=== PATIENT | female | born 1985 | race African-American/Black ===

== ENCOUNTER 2016-07-30 12:22 | Emergency (ER) | payer MEDICAID ==
[~2016-07-30] VITALS: Ht 162.6 cm; Wt 57.8 kg
[~2016-07-30 12:22] MED LIST: ZOFR4TAB3 SL
[2016-07-30 12:24] VITALS: BP 123/87; PULSE 114; RESP 16; TEMP 98.9; O2SAT 100
[2016-07-30] MEDS ORDERED: TRAM50TA PO (13:43)
--- NOTE | 2016-07-30 13:43 | PD ---
HPI Chief Complaint: Oral / Dental Pain or Problem Time Seen by Provider: 13:29 Travel History International Travel<30 days: No Contact w/Intl Traveler<30days: No Traveled to known affect area: No History of Present Illness HPI 30-year-old female presents to the emergency room for evaluation of right-sided dental pain for the past 3 days. Patient went to a dentist 2 weeks ago and was given a prescription for amoxicillin. She states she finished the prescription for days ago. She knows that she needs to have the tooth pulled but no dentists will accept pain and plans. She is called 25 dentists in the past 2 days without any lack. Patient has been taking ibuprofen and Orajel but states nothing really seems to help. She states pain radiates to her jaw, shoulder, and ear. Worse with any movement of the mouth, eating, and drinking. She has been lying and ice without any relief in symptoms. PFSH Past Medical History Diminished Hearing: No Genitourinary: Yes (UTI'S) ?: Not : 2 Para: 2 Tubal Ligation: Yes Past Surgical History Section: Yes (X 2) Genitourinary Surgery: Yes (REPAIR OF KIDNEY REFLUX CHILD) Gynecologic Surgery: Yes (TUBAL CLAMPS) Social History Alcohol Use: Yes (OCC) Tobacco Use: Yes (OCC) Substance Use: Yes (marijuana) Allergies-Medications (Allergen,Severity, Reaction): Coded Allergies: No Known Allergies (Unverified , 07/30/16) Reported Meds & Prescriptions Reported Meds & Active Scripts Active Tramadol (Tramadol HCl) 50 Mg Tab 50 Mg PO Q8H PRN Review of Systems Except as stated in HPI: all other systems reviewed are Neg Physical Exam Narrative GENERAL: Well-nourished, well-developed female in no acute distress. Afebrile. Ambulatory. SKIN: Focused skin assessment warm/dry. HEAD: Normocephalic. EYES: No scleral icterus. No injection or drainage. DENTAL: Mild decay throughout. No malocclusion. Tooth #30 has a large cavity in the center. There is no surrounding erythema or edema. No appreciable abscess. NECK: Supple, trachea midline. No JVD or lymphadenopathy. CARDIOVASCULAR: Regular rate and rhythm without murmurs, gallops, or rubs. RESPIRATORY: Breath sounds equal bilaterally. No accessory muscle use. Data Data Last Documented VS Vital Signs Date Time Temp Pulse Resp B/P Pulse Ox O2 Delivery O2 Flow Rate FiO2 07/30/16 12:24 98.9 114 16 123/87 100 MDM Medical Decision Making Medical Screen Exam Complete: Yes Emergency Medical Condition: Yes Medical Record Reviewed: Yes Differential Diagnosis Abscess versus dentalgia versus gingivitis Narrative Course 29-year-old female presents to the emergency room for evaluation of right lower dental pain for the past 3 days. Patient was seen at a dentist 2 weeks ago and prescribed amoxicillin but states her symptoms did not start until 1 day after amoxicillin finished. Physical exam reveals no obvious abscess, drainage, redness, or edema. It is extremely tender to palpation. Tooth #30 has a large cavity with exposed root which is likely the cause of patient's pain. Vital signs stable. No evidence of systemic infection or Ramu's angina. No indication for more antibiotics at this time. Patient was given a list of dentists in the area and told to follow up for extraction return for worsening symptoms. She understands and agrees to plan. Diagnosis Primary Impression: Dental caries Referrals: Dentist Patient Instructions: Dental Caries (ED), General Instructions Additional Instructions: Rest and drink plenty of fluids. [place] your teeth twice daily. Take tramadol as directed, as needed for pain. Do not drink alcohol or drive on taking this medication. Follow-up with a dentist. Return to the emergency room for worsening symptoms. Med/Other Pt SpecificInfo: Prescription(s) given Scripts Tramadol 50 Mg Tab50 Mg PO Q8H PRN (PAIN) #12 TAB Ref 0 Prov:Mina Claudio MD 07/30/16 Disposition: 01 DISCHARGE HOME Condition: Stable Aline Guaman July 30, 2016 13:42
== END 2016-07-30 13:48 | disposition home or self-care (01) ==
LOC: PHEFT 12:22
DX: K02.9 Dental caries, unspecified (principal); Z72.0 Tobacco use
CPT/HCPCS: 99282

== ENCOUNTER 2017-04-11 12:37 | Emergency (ER) | payer MEDICAID | END 2017-04-11 15:29 | disposition home or self-care (01) | LOC: NEPD 12:37 | DX: S89.91XA Unspecified injury of right lower leg, initial encounter (principal); Z72.0 Tobacco use; W10.9XXA Fall (on) (from) unspecified stairs and steps, initial encounter | CPT/HCPCS: 72170; 73564; 99284 ==

== ENCOUNTER 2017-07-22 09:31 | Emergency (ER) | payer MEDICAID ==
[2017-07-22 09:34] VITALS: BP 140/79; PULSE 115; RESP 20; TEMP 97.8; O2SAT 100
[2017-07-22] MEDS ORDERED: SODIUM CHLOR 0.9% 1000 ML INJ 1,000 ML IV SCH (09:59)
[2017-07-22] MEDS ORDERED: KETOROLAC TROMETHAMINE 30 MG/ML (IVP) VIAL IVP ONE (10:00)
[2017-07-22] MEDS ORDERED: MORPHINE SULFATE 4 MG/ML INJ IV PUSH ONE (10:00)
[2017-07-22] MEDS ORDERED: ONDANSETRON HCL 4 MG/2 ML VIAL IVP ONE (10:00)
[2017-07-22] MEDS ORDERED: ORPHENADRINE INJ 60 MG/2 ML AMP IM ONE (10:00)
[2017-07-22] MEDS ORDERED: DEXAMETHASONE SOD PHOS 20 MG/5 ML VIAL IV PUSH ONE (10:00)
[2017-07-22] MEDS ORDERED: SODIUM CHLORIDE 0.9% FLUSH 10 ML FLUSH IV FLUSH PRN (10:00)
[2017-07-22 10:37] LABS: AUTOMATED NEUTROPHIL # 3.5 TH/MM3 (1.8-7.7); BASOPHIL # 0.1 TH/MM3 (0-0.2); BASOPHIL % 1.2 % (0.0-2.0); EOSINOPHIL % 0.4 % (0.0-4.0); HEMATOCRIT 35.3 % (35.0-46.0); HEMOGLOBIN 11.8 GM/DL (11.6-15.3); LYMPH % 21.3 % (9.0-44.0); LYMPHOCYTE # 1.2 TH/MM3 (1.0-4.8); MEAN CELL VOLUME 80.4 FL (80.0-100.0); MEAN CORPUSCULAR HEMOGLOBIN 26.8 PG (27.0-34.0); MEAN CORPUSCULAR HGB CONC 33.4 % (32.0-36.0); MEAN PLATELET VOLUME 8.7 FL (7.0-11.0); MONO % 14.2 % (0.0-8.0); MONOCYTE # 0.8 TH/MM3 (0-0.9); NEUT % 62.9 % (16.0-70.0); PLATELET COUNT 380 TH/MM3 (150-450); RED BLOOD COUNT 4.39 MIL/MM3 (4.00-5.30); RED CELL DISTRIBUTION WIDTH 15.7 % (11.6-17.2); WHITE BLOOD COUNT 5.5 TH/MM3 (4.0-11.0)
[2017-07-22 10:39] LABS: BILIRUBIN, URINE NEG (NEG); BLOOD, URINE SMALL (NEG); GLUCOSE,URINE NEG (NEG); KETONE, URINE NEG (NEG); MUCUS URINE MOD /lpf (OCC); NITRITE,URINE NEG (NEG); SQUAMOUS EPITHELIAL CELL URINE 5 /hpf (0-5); URINE COLOR YELLOW (YELLW/STRAW); URINE LEUKOCYTE ESTERASE NEG (NEG)
--- NOTE | 2017-07-22 10:39 | PD ---
HPI Chief Complaint: Back/ Neck Pain or Injury Time Seen by Provider: 09:51 Travel History International Travel<30 days: No Contact w/Intl Traveler<30days: No Traveled to known affect area: No History of Present Illness HPI 31-year-old female presents emergency department with sudden onset right-sided back pain with radiation to the right hip and leg. Patient states it started 4 days ago while moving something in her garage it was very heavy. She felt sudden onset staring sharp pain in the right leg. Patient is works as a [employer], and while attempting to move another patient she reinjured the same area last night. Patient is now having difficulty bearing weight with the right leg. She denies numbness or tingling, however the pain is intense and worse with attempting to ambulate. She denies bowel or bladder changes. No previous history of back injury or disc problem in the past. Pain is currently 8 out of 10, and 10 out of 10 with ambulation. Patient states her pain was so bad last evening that she was vomiting secondary to the pain. Patient denies other injuries. PFSH Past Medical History Diminished Hearing: No Genitourinary: Yes (UTI'S) ?: Unknown : 2 Para: 2 Tubal Ligation: Yes Past Surgical History Section: Yes (X 2) Genitourinary Surgery: Yes (REPAIR OF KIDNEY REFLUX CHILD) Gynecologic Surgery: Yes (TUBAL CLAMPS) Social History Alcohol Use: Yes (OCC) Tobacco Use: Yes (OCC) Substance Use: No (denies) Allergies-Medications (Allergen,Severity, Reaction): Coded Allergies: No Known Allergies (Unverified , 07/30/16) Reported Meds & Prescriptions Reported Meds & Active Scripts Active Tramadol (Tramadol HCl) 50 Mg Tab 50 Mg PO Q6H PRN Flexeril (Cyclobenzaprine HCl) 10 Mg Tab 10 Mg PO TID Prednisone 20 Mg Tab 20 Mg PO BID 5 Days Review of Systems Except as stated in HPI: all other systems reviewed are Neg General / Constitutional: No: Fever Eyes: No: Visual changes HENT: No: Headaches Cardiovascular: No: Chest Pain or Discomfort Respiratory: No: Shortness of Breath Gastrointestinal: No: Abdominal Pain Genitourinary: No: Dysuria Musculoskeletal: Positive: Myalgias, Arthralgias, Limited ROM, Pain Skin: No Rash Neurologic: No: Weakness Psychiatric: No: Depression Endocrine: No: Polydipsia Hematologic/Lymphatic: No: Easy Bruising Physical Exam Narrative GENERAL: Patient appears in moderate distress per SKIN: Warm and dry. Normal color. Normal turgor. No rash. HEAD: Atraumatic. Normocephalic. EYES: Pupils equal and round. No scleral icterus. No injection or drainage. ENT: No nasal bleeding or discharge. Mucous membranes pink and moist. Pharynx is clear. Airways patent. NECK: Trachea midline. Supple and nontender. CARDIOVASCULAR: Regular rate and rhythm. RESPIRATORY: No accessory muscle use. Clear to auscultation. Breath sounds equal bilaterally. GASTROINTESTINAL: Abdomen soft, non-tender, nondistended. Hepatic and splenic margins not palpable. MUSCULOSKELETAL: Extremities without clubbing, cyanosis, or edema. No obvious deformities. Patient has palpable muscle spasm in the right lower lumbar spine with right sciatic notch. Patient has positive straight leg raise pain on the right at 35. Patient has difficulty plantar flexing on the right leg, cannot comfortably bear weight on the right leg. Deep tendon reflexes are brisk in both the patellar and Achilles tendons. NEUROLOGICAL: Awake and alert. No obvious cranial nerve deficits. Motor grossly within normal limits. Five out of 5 muscle strength in the arms and legs. Normal speech. PSYCHIATRIC: Appropriate mood and affect; insight and judgment normal. Data Data Last Documented VS Vital Signs Date Time Temp Pulse Resp B/P (MAP) Pulse Ox O2 Delivery O2 Flow Rate FiO2 07/22/17 09:34 97.8 115 20 140/79 (99) 100 Orders Orders Complete Blood Count With Diff (07/22/17 09:59) Comprehensive Metabolic Panel (07/22/17 09:59) Urinalysis - C+S If Indicated (07/22/17 09:59) Iv Access Insert/Monitor (07/22/17 09:59) Ecg Monitoring (07/22/17 09:59) Oximetry (07/22/17 09:59) Morphine Inj (Morphine Inj) (07/22/17 10:00) Ondansetron Inj (Zofran Inj) (07/22/17 10:00) Sodium Chlor 0.9% 1000 Ml Inj (Ns 1000 M (07/22/17 09:59) Sodium Chloride 0.9% Flush (Ns Flush) (07/22/17 10:00) Ketorolac Inj (Toradol Inj) (07/22/17 10:00) Dexamethasone Inj (Decadron Inj) (07/22/17 10:00) Orphenadrine Inj (Norflex Inj) (07/22/17 10:00) Mri L Spine W/O Contrast (07/22/17 09:59) Lorazepam Inj (Ativan Inj) (07/22/17 11:30) Labs Laboratory Tests Test 07/22/17 10:20 White Blood Count 5.5 TH/MM3 Red Blood Count 4.39 MIL/MM3 Hemoglobin 11.8 GM/DL Hematocrit 35.3 % Mean Corpuscular Volume 80.4 FL Mean Corpuscular Hemoglobin 26.8 PG Mean Corpuscular Hemoglobin Concent 33.4 % Red Cell Distribution Width 15.7 % Platelet Count 380 TH/MM3 Mean Platelet Volume 8.7 FL Neutrophils (%) (Auto) 62.9 % Lymphocytes (%) (Auto) 21.3 % Monocytes (%) (Auto) 14.2 % Eosinophils (%) (Auto) 0.4 % Basophils (%) (Auto) 1.2 % Neutrophils # (Auto) 3.5 TH/MM3 Lymphocytes # (Auto) 1.2 TH/MM3 Monocytes # (Auto) 0.8 TH/MM3 Eosinophils # (Auto) 0.0 TH/MM3 Basophils # (Auto) 0.1 TH/MM3 CBC Comment DIFF FINAL Differential Comment Urine Color YELLOW Urine Turbidity CLEAR Urine pH 6.0 Urine Specific [place] 1.020 Urine Protein NEG mg/dL Urine Glucose (UA) NEG mg/dL Urine Ketones NEG mg/dL Urine Occult Blood SMALL Urine Nitrite NEG Urine Bilirubin NEG Urine Urobilinogen LESS THAN 2.0 MG/DL Urine Leukocyte Esterase NEG Urine RBC 3 /hpf Urine WBC LESS THAN 1 /hpf Urine Squamous Epithelial Cells 5 /hpf Urine Mucus MOD /lpf Microscopic Urinalysis Comment CULT NOT INDICATED Blood Urea Nitrogen 8 MG/DL Creatinine 0.70 MG/DL Random Glucose 86 MG/DL Total Protein 8.0 GM/DL Albumin 4.2 GM/DL Calcium Level 8.9 MG/DL Alkaline Phosphatase 49 U/L Aspartate Amino Transf (AST/SGOT) 17 U/L Alanine Aminotransferase (ALT/SGPT) 18 U/L Total Bilirubin 0.4 MG/DL Sodium Level 138 MEQ/L Potassium Level 4.1 MEQ/L Chloride Level 106 MEQ/L Carbon Dioxide Level 24.3 MEQ/L Anion Gap 8 MEQ/L Estimat Glomerular Filtration Rate 119 ML/MIN MDM Medical Decision Making Medical Screen Exam Complete: Yes Emergency Medical Condition: Yes Differential Diagnosis Severe right lower lumbar pain. Muscle spasm. Sciatica. Possible herniation. Possible spinal listhesis. Narrative Course Patient appears medically stable at time of exam. Labs ordered including CBC, CMP, and urinalysis. IV access is obtained the patient is given 4 mg morphine IV, 4 mg Zofran IV, 30 mg Toradol IV, and 10 mg Decadron IV. Patient is given additional 60 mg Norflex IM. Patient is given 1000 mL's normal saline bolus. MRI of the lumbar spine is ordered. MRI shows: 1. Mild annular disc bulge at L4-5 with minimal flattening of the anterior thecal sac and no focal protrusion. 2. Mild degenerative joint changes involving the lower facet joints. Labs are unremarkable. Patient will be sent home with prednisone 20 mg twice daily 5 days. Patient also given Flexeril 10 mg up to 3 times daily as needed muscle spasm, # 15. Patient is given tramadol 50 mg 1 every 6 hours as needed pain #20. Patient to use heat followed by ice and gentle stretching for the next several days. Patient is put on light duty for the next 5 days. Patient should return if symptoms worsen as needed. Diagnosis Primary Impression: Lumbago with sciatica, right side Qualified Codes: M54.41 - Lumbago with sciatica, right side Patient Instructions: General Instructions Departure Forms: Work Release Enter return to work date: July 23, 2017 Special Instructions: Patient is to have light duty for the next 5 days. No lifting greater than 10 pounds. No stooping or kneeling. Additional Instructions: MRI shows: 1. Mild annular disc bulge at L4-5 with minimal flattening of the anterior thecal sac and no focal protrusion. 2. Mild degenerative joint changes involving the lower facet joints. Labs are unremarkable. Patient will be sent home with prednisone 20 mg twice daily 5 days. Patient also given Flexeril 10 mg up to 3 times daily as needed muscle spasm, # 15. Patient is given tramadol 50 mg 1 every 6 hours as needed pain #20. Patient to use heat followed by ice and gentle stretching for the next several days. Patient is put on light duty for the next 5 days. Patient should return if symptoms worsen as needed. Scripts Tramadol (Tramadol) 50 Mg Tab 50 MG PO Q6H Y for PAIN, #20 TAB 0 Refills Prov: La Nena Kay DO 07/22/17 Cyclobenzaprine (Flexeril) 10 Mg Tab 10 MG PO TID for Muscle Spasm, #15 TAB 0 Refills Prov: La Nena Kay DO 07/22/17 Prednisone (Prednisone) 20 Mg Tab 20 MG PO BID for 5 Days, #10 TAB 0 Refills Prov: La Nena Kay DO 07/22/17 Condition: Stable Khai Kee July 22, 2017 10:39
[2017-07-22 10:54] LABS: ALBUMIN 4.2 GM/DL (3.4-5.0); AST (GOT) 17 U/L (15-37); BICARBONATE 24.3 MEQ/L (21.0-32.0); BLOOD UREA NITROGEN 8 MG/DL (7-18); CALCIUM 8.9 MG/DL (8.5-10.1); CHLORIDE 106 MEQ/L (98-107); GLOMERULAR FILTRATION RATE 119 ML/MIN (>89); GLUCOSE,RANDOM 86 MG/DL (74-106); SODIUM (NA) 138 MEQ/L (136-145)
[2017-07-22 10:55] LABS: ALT (GPT) 18 U/L (10-53)
[2017-07-22 10:57] LABS: ALKALINE PHOSPHATASE 49 U/L (45-117); TOTAL BILIRUBIN ADULT 0.4 MG/DL (0.2-1.0)
[2017-07-22] MEDS ORDERED: LORazepam 2 MG/ML VIAL IM ONE (11:30)
--- NOTE | 2017-07-22 12:26 | RADRPT ---
EXAM DATE/TIME: 07/22/2017 11:44 [facility] COMPARISON: No previous studies available for comparison. INDICATIONS : Lower back pain radiation down right leg with weakness after moving furniture MEDICAL HISTORY : None. SURGICAL HISTORY : Tubal ligation. kidney surgery ENCOUNTER: Initial ACUITY: 2 day PAIN SCORE: 3/10 LOCATION: Right leg TECHNIQUE: Multiplanar multisequence MRI of the lumbar spine was performed without contrast. FINDINGS: The most caudal appearing lumbar vertebra is numbered as L5. VERTEBRAE: Homogeneous signal. Normal alignment. There is mild desiccation of the L4-5 level. CONUS: Normal level and configuration. T12-L1: The thecal sac has a normal diameter. No evidence of disc bulge or protrusion. The neural foramina are patent bilaterally. L1-L2: The thecal sac has a normal diameter. No evidence of disc bulge or protrusion. The neural foramina are patent bilaterally. L2-L3: The thecal sac has a normal diameter. No evidence of disc bulge or protrusion. The neural foramina are patent bilaterally. L3-L4: The thecal sac has a normal diameter. No evidence of disc bulge or protrusion. The neural foramina are patent bilaterally. L4-L5: There is a mild annular disc bulge with mild flattening of the anterior thecal sac and no focal protr usion. There is mild narrowing of the left neural foramina. There are mild degenerative changes invol ving the facet joints. L5-S1: The thecal sac has a normal diameter. No evidence of disc bulge or protrusion. The neural foramina are patent bilaterally. There are mild degenerative changes involving the facet joints. CONCLUSION: 1. Mild annular disc bulge at L4-5 with minimal flattening of the anterior thecal sac and no focal pr otrusion. 2. Mild degenerative joint changes involving the lower facet joints. Edson Arrieta MD on July 22, 2017 at 12:23 Board Certified Radiologist. This report was verified electronically.
[2017-07-22] MEDS ORDERED: CYCL10TA PO (12:37)
[2017-07-22] MEDS ORDERED: PRED20 PO (12:37)
[2017-07-22] MEDS ORDERED: TRAM50TA PO (12:37)
[2017-07-22 13:12] VITALS: BP 132/62
== END 2017-07-22 13:14 | disposition home or self-care (01) ==
LOC: NEPD 09:31
DX: M54.41 Lumbago with sciatica, right side (principal); Z72.0 Tobacco use
CPT/HCPCS: 72148; 80053; 81001; 85025; 96372; 96374; 96375; 99284; J1100; J1885; J2060; J2270; J2360; J2405; J7030

== ENCOUNTER 2017-08-11 19:34 | Emergency (ER) | payer MEDICAID ==
[~2017-08-11] VITALS: Ht 162.6 cm; Wt 62.0 kg
[~2017-08-11 19:34] MED LIST changes: +CYCL10TA PO; +PRED20 PO; +TRAM50TA PO; -ZOFR4TAB3 SL
[2017-08-11 19:53] VITALS: BP 115/91; PULSE 115; RESP 16; TEMP 98.6; O2SAT 99
--- NOTE | 2017-08-11 21:28 | PD ---
HPI . Vaginal bleeding Chief Complaint: Bleeding Time Seen by Provider: 20:58 Travel History International Travel<30 days: No Contact w/Intl Traveler<30days: No Traveled to known affect area: No History of Present Illness HPI Patient reports that she has been having excessive vaginal bleeding for 2 days now and clots multiple pads are changed she is having cramping suprapubic and she also felt orthostatic and nearly fell when she stood up today to get out of bed when she discovered the bed was covered and blood clots. She reports that normally she has a very scant. She has 3 days of bleeding usually some spotting first day and then maybe 2 or 3 clots on the pad and then it progresses on the third day. Her last menstrual period prior to today was a month ago and it was regular now she is having heavy bleeding with multiple clots. She denies taking any anticoagulation she denies family history of coagulopathy she does not have von Willebrand she does not have light 5 deficiency she does not have protein C or S deficiency she is not hemophiliac she is on no hormone replacement. 8 years ago she had a tubal ligation after her last child. She is now complaining of being dizzy lightheaded and having excessive bleeding she also reports associated bruising on her right lateral thigh that she does not run number any injury and has found this hematoma bruise that she thinks associated with her heavy vaginal bleeding. She denies any liver disease the cause coagulopathy and again she is not on excessive aspirin or any other medication. PFSH Past Medical History Diminished Hearing: No Genitourinary: Yes (UTI'S) ?: Not : 2 Para: 2 Tubal Ligation: Yes Past Surgical History Section: Yes (X 2) Genitourinary Surgery: Yes (REPAIR OF KIDNEY REFLUX CHILD) Gynecologic Surgery: Yes (TUBAL CLAMPS) Social History Alcohol Use: Yes (OCC) Tobacco Use: Yes (OCC) Substance Use: No (denies) Allergies-Medications (Allergen,Severity, Reaction): Coded Allergies: codeine (Verified Allergy, Unknown, 08/11/17) Reported Meds & Prescriptions Reported Meds & Active Scripts Active Ibuprofen 600 Mg Tab 600 Mg PO Q6H PRN Tramadol (Tramadol HCl) 50 Mg Tab 50 Mg PO Q6H PRN Flexeril (Cyclobenzaprine HCl) 10 Mg Tab 10 Mg PO TID Prednisone 20 Mg Tab 20 Mg PO BID 5 Days Review of Systems Except as stated in HPI: all other systems reviewed are Neg Neurologic: Positive: Weakness Physical Exam Narrative GENERAL: Patient mildly pale SKIN: Warm and dry. HEAD: Atraumatic. Normocephalic. EYES: Pupils equal and round. No scleral icterus. No injection or drainage. ENT: No nasal bleeding or discharge. Mucous membranes pink and moist. NECK: Trachea midline. No JVD. CARDIOVASCULAR: Regular rate and rhythm. RESPIRATORY: No accessory muscle use. Clear to auscultation. Breath sounds equal bilaterally. GASTROINTESTINAL: Abdomen soft, non-tender, nondistended. Hepatic and splenic margins not palpable. MUSCULOSKELETAL: Extremities without clubbing, cyanosis, or edema. No obvious deformities. NEUROLOGICAL: Awake and alert. No obvious cranial nerve deficits. Motor grossly within normal limits. Five out of 5 muscle strength in the arms and legs. Normal speech. PSYCHIATRIC: Appropriate mood and affect; insight and judgment normal. Pelvic exam she is excessive clots and bleeding in the vaginal vault Data Data Last Documented VS Vital Signs Date Time Temp Pulse Resp B/P (MAP) Pulse Ox O2 Delivery O2 Flow Rate FiO2 08/12/17 03:28 08/12/17 03:27 86 16 100 Room Air 08/11/17 19:53 98.6 Orders Orders Complete Blood Count With Diff (08/11/17 21:28) Comprehensive Metabolic Panel (08/11/17 21:28) Prothrombin Time / Inr (Pt) (08/11/17 21:28) Lipase (08/11/17 21:28) Thyroid Stimulating Hormone (08/11/17 21:28) Sodium Chlor 0.9% 1000 Ml Inj (Ns 1000 M (08/11/17 21:30) Ed Urine Pregnancytest Poc (08/11/17 21:29) Urinalysis - C+S If Indicated (08/11/17 21:30) Urine Culture (08/11/17 21:40) Cefazolin 2 Gm Premix (Ancef 2 Gm Premix (08/11/17 23:00) Cefazolin Inj (Ancef Inj) (08/11/17 23:30) Us Pelvis Comp Medical Collector/Non-Preg (08/11/17 ) Complete Blood Count With Diff (08/12/17 02:43) Ed Discharge Order (08/12/17 03:33) Labs Laboratory Tests Test 08/11/17 21:35 08/11/17 21:40 08/12/17 02:45 White Blood Count 10.9 TH/MM3 8.8 TH/MM3 Red Blood Count 4.40 MIL/MM3 3.67 MIL/MM3 Hemoglobin 11.6 GM/DL 10.0 GM/DL Hematocrit 36.4 % 30.4 % Mean Corpuscular Volume 82.7 FL 82.9 FL Mean Corpuscular Hemoglobin 26.4 PG 27.3 PG Mean Corpuscular Hemoglobin Concent 32.0 % 32.9 % Red Cell Distribution Width 16.3 % 16.2 % Platelet Count 316 TH/MM3 246 TH/MM3 Mean Platelet Volume 9.3 FL 9.1 FL Neutrophils (%) (Auto) 69.1 % 63.6 % Lymphocytes (%) (Auto) 19.8 % 25.0 % Monocytes (%) (Auto) 10.1 % 9.7 % Eosinophils (%) (Auto) 0.6 % 1.0 % Basophils (%) (Auto) 0.4 % 0.7 % Neutrophils # (Auto) 7.6 TH/MM3 5.6 TH/MM3 Lymphocytes # (Auto) 2.2 TH/MM3 2.2 TH/MM3 Monocytes # (Auto) 1.1 TH/MM3 0.9 TH/MM3 Eosinophils # (Auto) 0.1 TH/MM3 0.1 TH/MM3 Basophils # (Auto) 0.0 TH/MM3 0.1 TH/MM3 CBC Comment DIFF FINAL DIFF FINAL Differential Comment Prothrombin Time 10.3 SEC Prothromb Time International Ratio 1.0 RATIO Blood Urea Nitrogen 9 MG/DL Creatinine 0.78 MG/DL Random Glucose 81 MG/DL Total Protein 7.9 GM/DL Albumin 3.9 GM/DL Calcium Level 8.8 MG/DL Alkaline Phosphatase 48 U/L Aspartate Amino Transf (AST/SGOT) 27 U/L Alanine Aminotransferase (ALT/SGPT) 24 U/L Total Bilirubin 0.4 MG/DL Sodium Level 138 MEQ/L Potassium Level 3.5 MEQ/L Chloride Level 107 MEQ/L Carbon Dioxide Level 22.2 MEQ/L Anion Gap 9 MEQ/L Estimat Glomerular Filtration Rate 105 ML/MIN Lipase 79 U/L Thyroid Stimulating Hormone 3rd Gen 1.700 uIU/ML Urine Color RED Urine Turbidity HAZY Urine pH 5.5 Urine Specific [place] 1.016 Urine Protein 30 mg/dL Urine Glucose (UA) NEG mg/dL Urine Ketones NEG mg/dL Urine Occult Blood LARGE Urine Nitrite NEG Urine Bilirubin NEG Urine Urobilinogen LESS THAN 2.0 MG/DL Urine Leukocyte Esterase LARGE Urine RBC /hpf Urine WBC /hpf Urine WBC Clumps MANY Urine Squamous Epithelial Cells 2 /hpf Microscopic Urinalysis Comment CULTURE INDICATED MDM Medical Decision Making Medical Screen Exam Complete: Yes Emergency Medical Condition: Yes Differential Diagnosis UTI vs vaginal blood vs other endometrial cancer, vs fibriod bleeding other Narrative Course Patient's given a liter fluid the Ancef for the UTI she does have bleeding pelvic exam shows multiple clots in her vaginal vault after liter fluid I repeat the H&H her hemoglobin has gone from 11.6-10 her hematocrit is gone from 36-30. Ultrasound is being read as normal there is no excessive thickened endometrium there is no fibroids I explained to the patient that if it continues a D&C may be indicated but at this point she would rather go home and try to see if it decreases on its own I give her the name of the clinical ob on -call [facility] and tell her to return immediately for worsening symptoms excessive bleeding shortness of breath orthopnea orthostatic changes Diagnosis Primary Impression: Vaginal bleeding Referrals: Aaliyah Miller MD, Christopher J. MD [facility] Patient Instructions: General Instructions, Menorrhagia (GEN) Additional Instructions: Follow-up with clinical ob listed on your discharge papers or go to [facility]. If your bleeding continues and gets worse you feel short of breath dizzy lightheaded return immediately to the ER it may be possible you might need a D&C from gynecology if the bleeding continues excessively Scripts Cephalexin (Keflex) 500 Mg Capsule 500 MG PO TID for Infection, #21 CAP 0 Refills Prov: Chente Sinha MD 08/12/17 Ibuprofen (Ibuprofen) 600 Mg Tab 600 MG PO Q6H Y for Pain/Inflammation, #20 TAB 0 Refills Prov: Chente Sinha MD 08/12/17 Disposition: 01 DISCHARGE HOME Condition: Good Chente Sinha MD August 11, 2017 21:28
[2017-08-11] MEDS ORDERED: SODIUM CHLOR 0.9% 1000 ML INJ 1,000 ML IV ONE (21:30)
[2017-08-11 21:44] VITALS: BP 137/97; PULSE 106; RESP 16; O2SAT 99
[2017-08-11 21:56] LABS: AUTOMATED NEUTROPHIL # 7.6 TH/MM3 (1.8-7.7); BASOPHIL % 0.4 % (0.0-2.0); EOSINOPHIL # 0.1 TH/MM3 (0-0.4); EOSINOPHIL % 0.6 % (0.0-4.0); HEMATOCRIT 36.4 % (35.0-46.0); HEMOGLOBIN 11.6 GM/DL (11.6-15.3); LYMPH % 19.8 % (9.0-44.0); LYMPHOCYTE # 2.2 TH/MM3 (1.0-4.8); MEAN CELL VOLUME 82.7 FL (80.0-100.0); MEAN CORPUSCULAR HEMOGLOBIN 26.4 PG (27.0-34.0); MEAN PLATELET VOLUME 9.3 FL (7.0-11.0); MONO % 10.1 % (0.0-8.0); MONOCYTE # 1.1 TH/MM3 (0-0.9); NEUT % 69.1 % (16.0-70.0); PLATELET COUNT 316 TH/MM3 (150-450); RED CELL DISTRIBUTION WIDTH 16.3 % (11.6-17.2); WHITE BLOOD COUNT 10.9 TH/MM3 (4.0-11.0)
[2017-08-11 22:01] LABS: BILIRUBIN, URINE NEG (NEG); BLOOD, URINE LARGE (NEG); GLUCOSE,URINE NEG (NEG); KETONE, URINE NEG (NEG); NITRITE,URINE NEG (NEG); PH, URINE 5.5 (5.0-8.5); SQUAMOUS EPITHELIAL CELL URINE 2 /hpf (0-5); URINE COLOR RED (YELLW/STRAW); URINE LEUKOCYTE ESTERASE LARGE (NEG); WHITE BLOOD CELL CLUMPS MANY
[2017-08-11 22:06] LABS: PROTHROMBIN TIME - PATIENT 10.3 SEC (9.8-11.6)
[2017-08-11 22:23] LABS: ALBUMIN 3.9 GM/DL (3.4-5.0); AST (GOT) 27 U/L (15-37); BICARBONATE 22.2 MEQ/L (21.0-32.0); BLOOD UREA NITROGEN 9 MG/DL (7-18); CALCIUM 8.8 MG/DL (8.5-10.1); CHLORIDE 107 MEQ/L (98-107); CREATININE 0.78 MG/DL (0.50-1.00); GLOMERULAR FILTRATION RATE 105 ML/MIN (>89); GLUCOSE,RANDOM 81 MG/DL (74-106); SODIUM (NA) 138 MEQ/L (136-145)
[2017-08-11 22:24] LABS: ALT (GPT) 24 U/L (10-53)
[2017-08-11 22:34] LABS: ALKALINE PHOSPHATASE 48 U/L (45-117); TOTAL BILIRUBIN ADULT 0.4 MG/DL (0.2-1.0); TOTAL PROTEIN 7.9 GM/DL (6.4-8.2)
[2017-08-11] MEDS ORDERED: ceFAZolin 2 GM PREMIX 50 ML IV ONE (23:00)
[2017-08-11 23:36] VITALS: BP 122/77; PULSE 61; RESP 16; O2SAT 99
[2017-08-12 00:04] VITALS: BP_SYST 122; BP_SYST 123; BP_SYST 131; BP_DIAS 77; BP_DIAS 78; BP_DIAS 81; RESP 16
--- NOTE | 2017-08-12 02:52 | RADRPT ---
EXAM DATE: 08/12/2017 2:29 AM EDT AGE/SEX: 31 years / Female INDICATIONS: Heavy bleeding with her cycle. CLINICAL DATA: This is the patient's initial encounter. Patient reports that signs and symptoms have been present for 2 days and indicates a pain score of 0/10. MEDICAL/SURGICAL HISTORY: None. None. COMPARISON: No prior [facility] exams available for comparison. No external comparison. MEASUREMENTS: Uterus:__10.7 x 5.3 x 4.6 Endometrial Stripe:__5 mm Right Ovary:__ 2.2 x 1.8 x 1.8 Left Ovary:__ 2.5 x 1.8 x 1.8 FINDINGS: Uterus: The myometrium has homogeneous echotexture without mass. Right Ovary: Measures Left Ovary: Measures Other: No free fluid. CONCLUSION: 1. Unremarkable exam. The uterus and endometrium appear unremarkable. Electronically signed by: Edson Arrieta MD 08/12/2017 2:51 AM EDT
[2017-08-12 02:57] LABS: AUTOMATED NEUTROPHIL # 5.6 TH/MM3 (1.8-7.7); BASOPHIL # 0.1 TH/MM3 (0-0.2); BASOPHIL % 0.7 % (0.0-2.0); EOSINOPHIL # 0.1 TH/MM3 (0-0.4); HEMATOCRIT 30.4 % (35.0-46.0); LYMPHOCYTE # 2.2 TH/MM3 (1.0-4.8); MEAN CELL VOLUME 82.9 FL (80.0-100.0); MEAN CORPUSCULAR HEMOGLOBIN 27.3 PG (27.0-34.0); MEAN CORPUSCULAR HGB CONC 32.9 % (32.0-36.0); MEAN PLATELET VOLUME 9.1 FL (7.0-11.0); MONO % 9.7 % (0.0-8.0); MONOCYTE # 0.9 TH/MM3 (0-0.9); NEUT % 63.6 % (16.0-70.0); PLATELET COUNT 246 TH/MM3 (150-450); RED BLOOD COUNT 3.67 MIL/MM3 (4.00-5.30); RED CELL DISTRIBUTION WIDTH 16.2 % (11.6-17.2); WHITE BLOOD COUNT 8.8 TH/MM3 (4.0-11.0)
[2017-08-12] MEDS ORDERED: IBUP-232 PO (03:22)
[2017-08-12 03:27] VITALS: BP 148/86; PULSE 86; RESP 16; O2SAT 100
[2017-08-12] MEDS ORDERED: CEPH-460 PO (03:34)
== END 2017-08-12 03:37 | disposition home or self-care (01) ==
LOC: NEPE 19:34
DX: N93.9 Abnormal uterine and vaginal bleeding, unspecified (principal); R42 Dizziness and giddiness; Z72.0 Tobacco use
CPT/HCPCS: 76856; 80053; 81001; 83690; 84443; 84703; 85025; 85610; 87086; 96361; 96374; 99284; J0690; J7030